=== PATIENT | male | born 1940 | race Caucasian/White ===

== ENCOUNTER 2020-06-10 20:02 | Inpatient (IN) | payer MEDICARE ==
[2020-06-10 21:12] LABS: #Monocytes 0.8 10x3/uL (0.0-1.1); #Neutrophils 3.6 10x3/uL (1.5-8.4); %Basophils 0.2 % (0.0-2.0); %Eosinophils 0.5 % (0.0-6.0); %Lymphocytes 17.2 % (18.0-47.0); %Monocytes 14.6 % (0.0-10.0); Hemoglobin 11.8 g/dL (13.5-17.5); Mean Corpuscular HGB CONC 34.7 g/dL (32.0-36.0); Mean Corpuscular Hemoglobin 31.5 pg (27.0-33.0); Mean Corpuscular Volume 90.7 fl (81.2-95.1); Mean Platelet Volume 9.5 fl (7.4-10.4); Platelet Count 158 10x3/uL (150-450); RBC Distribution Width 14.9 % (11.5-14.5); Red Blood Cell (RBC) Count 3.75 10x6/uL (4.32-5.72); White Blood Cell (WBC) Count 5.7 10x3/uL (3.5-10.5)
[2020-06-10 21:28] LABS: ALT (SGPT) 24 U/L (8-55); AST (SGOT) 30 U/L (5-34); Alkaline Phosphatase 86 U/L (40-110); Anion Gap 12 mmol/L (10-20); BUN (Urea Nitrogen) 18 mg/dL (8.4-25.7); Bilirubin, Total 0.7 mg/dL (0.2-1.2); Calc. Creatinine Clearance 0 mL/min (70-130); Carbon Dioxide 27 mmol/L (23-31); Chloride 91 mmol/L (98-107); Globulin 2.2 g/dL (2.4-3.5); Glucose 91 mg/dL (83-110); Lipase 89 U/L (8-78); Potassium 3.1 mmol/L (3.5-5.1); Protein, Total 5.2 g/dL (5.8-8.1); Sodium 127 mmol/L (136-145)
[2020-06-10 21:34] LABS: Calcium 5.8 mg/dL (7.8-10.44)
[2020-06-10] MEDS ORDERED: Potassium Chloride 20 MEQ/100 ML PREMIX BAG ONE (22:38)
[2020-06-10] MEDS ORDERED: Magnesium 2 GM/50 ML BAG (IN WATER) ONE (22:38)
[2020-06-10] MEDS ORDERED: Dextrose 50% Abboject 50 ML SYRINGE SLOW IVP PRN (22:45)
[2020-06-10] MEDS ORDERED: Dextrose 5% in Water 1,000 ML IV PRN (22:45)
[2020-06-10] MEDS ORDERED: Guaifenesin DM 100-10/5 ML UDCUP PO PRN (22:45)
[2020-06-10] MEDS ORDERED: Calcium Gluc 4.6 MEQ/10 ML (100 MG/ML) SLOW IVP SCH (22:48)
[2020-06-10] MEDS ORDERED: Potassium Chloride 20 MEQ TAB PO SCH (23:00)
[2020-06-10 23:30] VITALS: BMI 43.1
[2020-06-11 00:39] LABS: Bilirubin Neg (Negative); Blood, Urine Negative (Negative); Clarity Clear (Clear); Glucose, Urine (Dipstick) Normal (Negative); Ketone, Urine Negative (Negative); Leukocyte Negative (Negative); Nitrite Negative (Negative); Protein, Urine (Dipstick) 15 mg/dl (Neg-Trace); Specific Gravity, Urine 1.015 (1.002-1.036); Urobilinogen Normal mg/dL (Less than 2)
[2020-06-11 00:53] LABS: Bacteria/HPF Rare-Few HPF (None Seen); RBC/HPF 0-3 HPF (0-3); Squamous Epithelial 0-3 HPF (0-3); WBC/HPF 0-3 HPF (0-3)
[2020-06-11] MEDS: NS 0.9% w/ 20 MEQ KCL 1,000 ML/1,000 ML BAG IV SCH ×3 (01:17→18:23)
[2020-06-11] MEDS ORDERED: Magnesium 2 GM/50 ML 2 GM in Premix Bag 1 BAG IVPB SCH (03:00)
[2020-06-11 05:22] LABS: #Monocytes 0.8 10x3/uL (0.0-1.1); #Neutrophils 3.1 10x3/uL (1.5-8.4); %Basophils 0.2 % (0.0-2.0); %Eosinophils 0.6 % (0.0-6.0); %Lymphocytes 15.6 % (18.0-47.0); %Monocytes 17.3 % (0.0-10.0); %Neutrophils 63.8 % (40.0-75.0); Hemoglobin 12.2 g/dL (13.5-17.5); Mean Corpuscular HGB CONC 35.2 g/dL (32.0-36.0); Mean Corpuscular Hemoglobin 31.3 pg (27.0-33.0); Mean Platelet Volume 9.2 fl (7.4-10.4); Platelet Count 160 10x3/uL (150-450); RBC Distribution Width 14.6 % (11.5-14.5); White Blood Cell (WBC) Count 4.8 10x3/uL (3.5-10.5)
[2020-06-11 05:40] LABS: ALT (SGPT) 25 U/L (8-55); AST (SGOT) 31 U/L (5-34); Albumin 2.9 g/dL (3.4-4.8); Alkaline Phosphatase 85 U/L (40-110); Anion Gap 14 mmol/L (10-20); BUN (Urea Nitrogen) 14 mg/dL (8.4-25.7); Bilirubin, Total 0.7 mg/dL (0.2-1.2); Calc. Creatinine Clearance 154 mL/min (70-130); Carbon Dioxide 25 mmol/L (23-31); Chloride 95 mmol/L (98-107); Globulin 2.3 g/dL (2.4-3.5); Glucose 98 mg/dL (83-110); Lipase 73 U/L (8-78); Protein, Total 5.2 g/dL (5.8-8.1); Sodium 131 mmol/L (136-145)
[2020-06-11 05:54] LABS: Calcium 5.9 mg/dL (7.8-10.44)
[2020-06-11] MEDS ORDERED: Calcium Gluc 4.6 MEQ/10 ML (100 MG/ML) SLOW IVP ONE (05:55)
[2020-06-11] MEDS ORDERED: Potassium Chloride 20 MEQ TAB PO SCH (06:00)
[2020-06-11] MEDS ORDERED: Calcium Gluconate 4.6 MEQ in Sodium Chloride 0.9% 100 ML IVPB SCH (06:30)
[2020-06-11 08:33] LABS: Magnesium 1.3 mg/dL (1.6-2.6); Phosphorus 2.8 mg/dL (2.3-4.7)
[2020-06-11] MEDS: Tamsulosin HCl 0.4 MG CAP PO SCH (08:49)
[2020-06-11] MEDS: Calcium Carbonate 500 MG ChewTAB PO SCH ×2 (08:49→20:34)
[2020-06-11] MEDS: Carvedilol 3.125 MG TAB PO SCH ×2 (08:49→18:45)
[2020-06-11] MEDS: Folic Acid 1 MG TAB PO SCH (08:50)
[2020-06-11] MEDS: Aspirin 81 mg Enteric Coated Tablet PO SCH (08:50)
[2020-06-11] MEDS: Famotidine 20 MG TAB PO SCH ×2 (08:50→20:34)
[2020-06-11] MEDS: Apixaban 5 MG TAB PO SCH ×2 (08:50→20:34)
[2020-06-11] MEDS ORDERED: Cholecalciferol 1,000 UNITS (25 MCG) TAB PO SCH (09:00)
[2020-06-11 11:25] LABS: Hemoglobin A1c 7.2 % (4.0-6.0)
[2020-06-11 12:45] LABS: Anion Gap 11 mmol/L (10-20); BUN (Urea Nitrogen) 12 mg/dL (8.4-25.7); Calc. Creatinine Clearance 191 mL/min (70-130); Carbon Dioxide 26 mmol/L (23-31); Chloride 95 mmol/L (98-107); Glucose 95 mg/dL (83-110); Potassium 3.2 mmol/L (3.5-5.1); Sodium 129 mmol/L (136-145)
[2020-06-11 12:54] LABS: Calcium 5.9 mg/dL (7.8-10.44)
[2020-06-11] MEDS: Atorvastatin Calcium 20 MG TAB PO SCH (20:34)
[2020-06-11] MEDS: Magnesium Oxide 400 MG TAB PO SCH (20:34)
[2020-06-12 05:41] LABS: #Monocytes 0.6 10x3/uL (0.0-1.1); #Neutrophils 3.2 10x3/uL (1.5-8.4); %Basophils 0.2 % (0.0-2.0); %Eosinophils 0.6 % (0.0-6.0); %Lymphocytes 18.4 % (18.0-47.0); %Monocytes 11.3 % (0.0-10.0); %Neutrophils 66.4 % (40.0-75.0); Hemoglobin 11.9 g/dL (13.5-17.5); Mean Corpuscular HGB CONC 34.7 g/dL (32.0-36.0); Mean Corpuscular Hemoglobin 31.6 pg (27.0-33.0); Mean Corpuscular Volume 91.2 fl (81.2-95.1); Mean Platelet Volume 9.5 fl (7.4-10.4); Platelet Count 177 10x3/uL (150-450); RBC Distribution Width 14.5 % (11.5-14.5); Red Blood Cell (RBC) Count 3.76 10x6/uL (4.32-5.72); White Blood Cell (WBC) Count 4.9 10x3/uL (3.5-10.5)
[2020-06-12 06:02] LABS: Anion Gap 19 mmol/L (10-20); BUN (Urea Nitrogen) 10 mg/dL (8.4-25.7); Calc. Creatinine Clearance 178 mL/min (70-130); Carbon Dioxide 22 mmol/L (23-31); Chloride 95 mmol/L (98-107); Glucose 100 mg/dL (83-110); Potassium 3.3 mmol/L (3.5-5.1); Sodium 133 mmol/L (136-145)
[2020-06-12] MEDS: NS 0.9% w/ 20 MEQ KCL 1,000 ML/1,000 ML BAG IV SCH ×2 (06:14→16:31)
[2020-06-12 06:44] LABS: Calcium 5.9 mg/dL (7.8-10.44); Magnesium 0.9 mg/dL (1.6-2.6)
[2020-06-12] MEDS ORDERED: Calcium Gluconate 4.6 MEQ in Sodium Chloride 0.9% 100 ML IVPB SCH (07:30)
[2020-06-12] MEDS ORDERED: Electrolyte Replacement Protocol 1 EACH FS SCH (08:00)
[2020-06-12] MEDS ORDERED: Potassium Chloride 20 MEQ TAB PO SCH (08:30)
[2020-06-12] MEDS: Magnesium 2 GM/50 ML 2 GM in Premix Bag 1 BAG IVPB SCH ×4 (08:42→13:02)
[2020-06-12] MEDS: Calcium Carbonate 500 MG ChewTAB PO SCH ×2 (08:45→21:10)
[2020-06-12] MEDS: Aspirin 81 mg Enteric Coated Tablet PO SCH (08:45)
[2020-06-12] MEDS: Famotidine 20 MG TAB PO SCH ×2 (08:45→21:10)
[2020-06-12] MEDS: Carvedilol 3.125 MG TAB PO SCH ×2 (08:46→18:36)
[2020-06-12] MEDS: Tamsulosin HCl 0.4 MG CAP PO SCH (08:46)
[2020-06-12] MEDS: Apixaban 5 MG TAB PO SCH ×2 (08:46→21:10)
[2020-06-12] MEDS: Folic Acid 1 MG TAB PO SCH (08:46)
[2020-06-12] MEDS: Magnesium Oxide 400 MG TAB PO SCH ×2 (08:46→21:10)
[2020-06-12] MEDS: Ergocalciferol 1.25 MG(50,000 UNITS) CAP PO SCH (08:46)
[2020-06-12] MEDS: Cefepime 1 GM in Sodium Chloride 0.9% 100 ML IVPB SCH (18:34)
[2020-06-12] MEDS: Atorvastatin Calcium 20 MG TAB PO SCH (21:10)
[2020-06-13] MEDS: NS 0.9% w/ 20 MEQ KCL 1,000 ML/1,000 ML BAG IV SCH ×3 (00:43→20:34)
[2020-06-13] MEDS: Cefepime 1 GM in Sodium Chloride 0.9% 100 ML IVPB SCH (05:27)
[2020-06-13 06:09] LABS: Anion Gap 15 mmol/L (10-20); BUN (Urea Nitrogen) 10 mg/dL (8.4-25.7); Calc. Creatinine Clearance 178 mL/min (70-130); Carbon Dioxide 25 mmol/L (23-31); Chloride 98 mmol/L (98-107); Glucose 61 mg/dL (83-110); Magnesium 1.3 mg/dL (1.6-2.6); Sodium 135 mmol/L (136-145)
[2020-06-13 06:15] LABS: Potassium 2.9 mmol/L (3.5-5.1)
[2020-06-13 06:21] LABS: Mean Corpuscular Hemoglobin 30.7 pg (27.0-33.0); Mean Corpuscular Volume 90.5 fl (81.2-95.1); Mean Platelet Volume 9.3 fl (7.4-10.4); Platelet Count 158 10x3/uL (150-450); RBC Distribution Width 14.7 % (11.5-14.5); Red Blood Cell (RBC) Count 3.58 10x6/uL (4.32-5.72); White Blood Cell (WBC) Count 3.6 10x3/uL (3.5-10.5)
[2020-06-13] MEDS ORDERED: Potassium Chloride 20 MEQ TAB PO SCH ×2 (07:00→11:00)
[2020-06-13 07:06] LABS: Band 15 % (5-11); Lymphocytes 4 % (21-51); Monocytes 11 % (0-10); Neutrophil 70 % (42-75)
[2020-06-13 07:15] LABS: Dohle Bodies SLIGHT; Platelet Clumps SLIGHT; Platelet Morphology Comment Appears Adequate
[2020-06-13 07:16] LABS: Manual Diff?? YES; Toxic Granulation SLIGHT
[2020-06-13 07:17] LABS: MDiff Complete? YES
[2020-06-13] MEDS: Carvedilol 3.125 MG TAB PO SCH ×2 (09:12→17:19)
[2020-06-13] MEDS: Potassium Chloride 20 MEQ TAB PO SCH ×2 (09:13→16:28)
[2020-06-13] MEDS: Apixaban 5 MG TAB PO SCH ×2 (09:13→20:32)
[2020-06-13] MEDS: Tamsulosin HCl 0.4 MG CAP PO SCH (09:13)
[2020-06-13] MEDS: Famotidine 20 MG TAB PO SCH ×2 (09:13→20:32)
[2020-06-13] MEDS: Aspirin 81 mg Enteric Coated Tablet PO SCH (09:13)
[2020-06-13] MEDS: Folic Acid 1 MG TAB PO SCH (09:13)
[2020-06-13] MEDS: Calcium Carbonate 500 MG ChewTAB PO SCH ×2 (09:14→20:32)
[2020-06-13] MEDS: Magnesium Oxide 400 MG TAB PO SCH ×2 (09:14→20:32)
[2020-06-13] MEDS: Magnesium 2 GM/50 ML 2 GM in Premix Bag 1 BAG IVPB SCH ×2 (09:25→10:35)
[2020-06-13] MEDS: SODIUM CHLORIDE IVPB SCH ×2 (16:28→21:10)
[2020-06-13] MEDS: ADMIXTURE FEE IVPB SCH ×2 (16:28→21:10)
[2020-06-13] MEDS: ACYCLOVIR SODIUM IVPB SCH ×2 (16:28→21:10)
[2020-06-13 18:12] LABS: Anion Gap 11 mmol/L (10-20); BUN (Urea Nitrogen) 9 mg/dL (8.4-25.7); Calc. Creatinine Clearance 171 mL/min (70-130); Carbon Dioxide 27 mmol/L (23-31); Chloride 101 mmol/L (98-107); Glucose 99 mg/dL (83-110); Magnesium 1.6 mg/dL (1.6-2.6); Phosphorus 2.2 mg/dL (2.3-4.7); Potassium 3.2 mmol/L (3.5-5.1); Sodium 136 mmol/L (136-145)
[2020-06-13] MEDS: Atorvastatin Calcium 20 MG TAB PO SCH (20:32)
[2020-06-14 05:40] LABS: #Monocytes 0.6 10x3/uL (0.0-1.1); #Neutrophils 2.4 10x3/uL (1.5-8.4); %Basophils 0.7 % (0.0-2.0); %Eosinophils 0.7 % (0.0-6.0); %Lymphocytes 20.8 % (18.0-47.0); %Monocytes 14.9 % (0.0-10.0); %Neutrophils 60.2 % (40.0-75.0); Hemoglobin 11.4 g/dL (13.5-17.5); Mean Corpuscular HGB CONC 34.4 g/dL (32.0-36.0); Mean Corpuscular Hemoglobin 31.2 pg (27.0-33.0); Mean Corpuscular Volume 90.7 fl (81.2-95.1); Mean Platelet Volume 8.8 fl (7.4-10.4); Platelet Count 147 10x3/uL (150-450); RBC Distribution Width 14.6 % (11.5-14.5); Red Blood Cell (RBC) Count 3.65 10x6/uL (4.32-5.72)
[2020-06-14 05:43] LABS: Anion Gap 13 mmol/L (10-20); BUN (Urea Nitrogen) 9 mg/dL (8.4-25.7); Calc. Creatinine Clearance 194 mL/min (70-130); Calcium 6.1 mg/dL (7.8-10.44); Carbon Dioxide 25 mmol/L (23-31); Chloride 101 mmol/L (98-107); Glucose 78 mg/dL (83-110); Magnesium 1.2 mg/dL (1.6-2.6); Sodium 136 mmol/L (136-145)
[2020-06-14 05:49] LABS: Potassium 2.7 mmol/L (3.5-5.1)
[2020-06-14] MEDS: SODIUM CHLORIDE IVPB SCH ×3 (05:50→22:40)
[2020-06-14] MEDS: NS 0.9% w/ 20 MEQ KCL 1,000 ML/1,000 ML BAG IV SCH ×2 (05:50→17:07)
[2020-06-14] MEDS: ADMIXTURE FEE IVPB SCH ×3 (05:50→22:40)
[2020-06-14] MEDS: ACYCLOVIR SODIUM IVPB SCH ×3 (05:50→22:40)
[2020-06-14] MEDS ORDERED: Potassium Chloride 20 MEQ TAB PO SCH ×3 (06:45→18:00)
[2020-06-14] MEDS ORDERED: Magnesium 2 GM/50 ML 2 GM in Premix Bag 1 BAG IVPB SCH ×3 (06:45→20:00)
[2020-06-14] MEDS: Folic Acid 1 MG TAB PO SCH (10:56)
[2020-06-14] MEDS: Famotidine 20 MG TAB PO SCH ×2 (10:56→20:51)
[2020-06-14] MEDS: Magnesium Oxide 400 MG TAB PO SCH ×2 (10:56→20:51)
[2020-06-14] MEDS: Aspirin 81 mg Enteric Coated Tablet PO SCH (10:56)
[2020-06-14] MEDS: Apixaban 5 MG TAB PO SCH ×2 (10:56→20:51)
[2020-06-14] MEDS: Carvedilol 3.125 MG TAB PO SCH ×2 (10:56→17:07)
[2020-06-14] MEDS: Tamsulosin HCl 0.4 MG CAP PO SCH (10:56)
[2020-06-14] MEDS: Calcium Carbonate 500 MG ChewTAB PO SCH ×2 (10:57→20:51)
[2020-06-14] MEDS: Potassium Chloride 20 MEQ TAB PO SCH ×2 (10:57→17:07)
[2020-06-14] MEDS ORDERED: Metamucil PACK PO SCH (16:00)
[2020-06-14 17:06] LABS: Anion Gap 11 mmol/L (10-20); BUN (Urea Nitrogen) 8 mg/dL (8.4-25.7); Calc. Creatinine Clearance 197 mL/min (70-130); Carbon Dioxide 26 mmol/L (23-31); Chloride 103 mmol/L (98-107); Glucose 181 mg/dL (83-110); Magnesium 1.2 mg/dL (1.6-2.6); Potassium 3.1 mmol/L (3.5-5.1); Sodium 137 mmol/L (136-145)
[2020-06-14 17:29] LABS: Phosphorus 1.9 mg/dL (2.3-4.7)
[2020-06-14] MEDS ORDERED: PHOS-NAK 1 PKT PACK PO SCH (20:00)
[2020-06-14] MEDS: Atorvastatin Calcium 20 MG TAB PO SCH (20:51)
[2020-06-14] MEDS: Cefepime 1 GM in Sodium Chloride 0.9% 100 ML IVPB SCH (20:51)
[2020-06-15] MEDS: ADMIXTURE FEE IVPB SCH ×3 (05:45→21:33)
[2020-06-15] MEDS: SODIUM CHLORIDE IVPB SCH ×3 (05:45→21:33)
[2020-06-15] MEDS: ACYCLOVIR SODIUM IVPB SCH ×3 (05:45→21:33)
[2020-06-15 06:02] LABS: Anion Gap 12 mmol/L (10-20); BUN (Urea Nitrogen) 5 mg/dL (8.4-25.7); Calc. Creatinine Clearance 218 mL/min (70-130); Carbon Dioxide 26 mmol/L (23-31); Chloride 103 mmol/L (98-107); Glucose 136 mg/dL (83-110); Magnesium 1.2 mg/dL (1.6-2.6); Sodium 138 mmol/L (136-145)
[2020-06-15 06:06] LABS: Potassium 2.9 mmol/L (3.5-5.1)
[2020-06-15 06:14] LABS: #Eosinphils 0.1 10x3/uL (0.0-0.5); #Monocytes 0.4 10x3/uL (0.0-1.1); #Neutrophils 1.7 10x3/uL (1.5-8.4); %Basophils 0.3 % (0.0-2.0); %Lymphocytes 22.4 % (18.0-47.0); %Monocytes 14.5 % (0.0-10.0); %Neutrophils 56.2 % (40.0-75.0); Hemoglobin 11.3 g/dL (13.5-17.5); Mean Corpuscular HGB CONC 34.9 g/dL (32.0-36.0); Mean Corpuscular Hemoglobin 31.2 pg (27.0-33.0); Mean Corpuscular Volume 89.5 fl (81.2-95.1); Mean Platelet Volume 8.8 fl (7.4-10.4); Platelet Count 147 10x3/uL (150-450); RBC Distribution Width 14.7 % (11.5-14.5); Red Blood Cell (RBC) Count 3.62 10x6/uL (4.32-5.72)
[2020-06-15] MEDS ORDERED: PHOS-NAK 1 PKT PACK PO SCH (06:30)
[2020-06-15] MEDS: Potassium Chloride 20 MEQ in Premix Bag 1 BAG IVPB SCH ×4 (07:04→14:03)
[2020-06-15] MEDS: NS 0.9% w/ 20 MEQ KCL 1,000 ML/1,000 ML BAG IV SCH (07:06)
[2020-06-15] MEDS ORDERED: Magnesium Sulfate/D5W 1 GM/100 ML BAG IVPB SCH (08:00)
[2020-06-15] MEDS ORDERED: Magnesium 2 GM/50 ML 2 GM in Premix Bag 1 BAG IVPB SCH (08:00)
[2020-06-15] MEDS ORDERED: Magnesium 2 GM/50 ML BAG (IN WATER) IVPB SCH (09:00)
[2020-06-15] MEDS ORDERED: Potassium Chloride 20 MEQ/100 ML PREMIX BAG ONE (09:14)
[2020-06-15] MEDS: Metamucil PACK PO SCH (09:18)
[2020-06-15] MEDS: Cefepime 1 GM in Sodium Chloride 0.9% 100 ML IVPB SCH ×2 (09:18→21:32)
[2020-06-15] MEDS: Aspirin 81 mg Enteric Coated Tablet PO SCH (09:19)
[2020-06-15] MEDS: Tamsulosin HCl 0.4 MG CAP PO SCH (09:19)
[2020-06-15] MEDS: Folic Acid 1 MG TAB PO SCH (09:19)
[2020-06-15] MEDS: Famotidine 20 MG TAB PO SCH ×2 (09:19→21:37)
[2020-06-15] MEDS: Calcium Carbonate 500 MG ChewTAB PO SCH ×2 (09:19→21:31)
[2020-06-15] MEDS: Carvedilol 3.125 MG TAB PO SCH ×2 (09:20→18:17)
[2020-06-15] MEDS: Apixaban 5 MG TAB PO SCH ×2 (09:20→21:31)
[2020-06-15] MEDS: Magnesium Oxide 400 MG TAB PO SCH ×2 (09:20→21:37)
[2020-06-15] MEDS: Acetaminophen 325 MG TAB PO PRN (10:11)
[2020-06-15] MEDS: HumaLOG 300 UNITS/3 ML VIAL SC PRN (18:38)
[2020-06-15] MEDS: Atorvastatin Calcium 20 MG TAB PO SCH (21:31)
[2020-06-16] MEDS: HumaLOG 300 UNITS/3 ML VIAL SC PRN ×3 (01:20→23:48)
[2020-06-16] MEDS: Loperamide HCl 2 MG CAP PO PRN (01:55)
[2020-06-16 03:15] LABS: Bilirubin Neg (Negative); Blood, Urine Negative (Negative); Clarity Clear (Clear); Glucose, Urine (Dipstick) 250 mg/dL (Negative); Ketone, Urine Negative (Negative); Leukocyte Negative (Negative); Nitrite Negative (Negative); Protein, Urine (Dipstick) 15 mg/dl (Neg-Trace); Urobilinogen Normal mg/dL (Less than 2); pH, Urine 6.5 (5.0-9.0)
[2020-06-16 05:46] LABS: #Eosinphils 0.1 10x3/uL (0.0-0.5); #Monocytes 0.6 10x3/uL (0.0-1.1); #Neutrophils 1.9 10x3/uL (1.5-8.4); %Basophils 0.6 % (0.0-2.0); %Eosinophils 1.8 % (0.0-6.0); %Lymphocytes 19.5 % (18.0-47.0); %Monocytes 19.2 % (0.0-10.0); %Neutrophils 57.1 % (40.0-75.0); Hemoglobin 11.7 g/dL (13.5-17.5); Mean Corpuscular HGB CONC 34.3 g/dL (32.0-36.0); Mean Corpuscular Hemoglobin 31.2 pg (27.0-33.0); Mean Corpuscular Volume 90.9 fl (81.2-95.1); Mean Platelet Volume 8.8 fl (7.4-10.4); Platelet Count 147 10x3/uL (150-450); RBC Distribution Width 14.6 % (11.5-14.5); Red Blood Cell (RBC) Count 3.75 10x6/uL (4.32-5.72); White Blood Cell (WBC) Count 3.3 10x3/uL (3.5-10.5)
[2020-06-16] MEDS: SODIUM CHLORIDE IVPB SCH ×3 (05:53→22:21)
[2020-06-16] MEDS: ACYCLOVIR SODIUM IVPB SCH ×3 (05:53→22:21)
[2020-06-16] MEDS: ADMIXTURE FEE IVPB SCH ×3 (05:53→22:21)
[2020-06-16 05:59] LABS: Anion Gap 13 mmol/L (10-20); BUN (Urea Nitrogen) 6 mg/dL (8.4-25.7); Calc. Creatinine Clearance 218 mL/min (70-130); Carbon Dioxide 28 mmol/L (23-31); Chloride 103 mmol/L (98-107); Glucose 116 mg/dL (83-110); Sodium 141 mmol/L (136-145)
[2020-06-16 06:02] LABS: Phosphorus 1.8 mg/dL (2.3-4.7)
[2020-06-16] MEDS: NS 0.9% w/ 20 MEQ KCL 1,000 ML/1,000 ML BAG IV SCH ×4 (07:05→20:57)
[2020-06-16] MEDS: Aspirin 81 mg Enteric Coated Tablet PO SCH (08:54)
[2020-06-16] MEDS: Calcium Carbonate 500 MG ChewTAB PO SCH ×2 (08:54→20:57)
[2020-06-16] MEDS: PHOS-NAK 1 PKT PACK PO SCH ×2 (08:54→14:27)
[2020-06-16] MEDS: Apixaban 5 MG TAB PO SCH ×2 (08:55→20:57)
[2020-06-16] MEDS: Metamucil PACK PO SCH (08:55)
[2020-06-16] MEDS: Folic Acid 1 MG TAB PO SCH (08:55)
[2020-06-16] MEDS: Carvedilol 3.125 MG TAB PO SCH ×2 (08:55→18:17)
[2020-06-16] MEDS: Magnesium Oxide 400 MG TAB PO SCH ×2 (08:55→20:59)
[2020-06-16] MEDS: Famotidine 20 MG TAB PO SCH ×2 (08:55→20:57)
[2020-06-16] MEDS: Cefepime 1 GM in Sodium Chloride 0.9% 100 ML IVPB SCH ×2 (08:55→20:58)
[2020-06-16] MEDS: Tamsulosin HCl 0.4 MG CAP PO SCH (08:55)
[2020-06-16] MEDS: Magnesium 2 GM/50 ML 2 GM in Premix Bag 1 BAG IVPB SCH ×2 (10:59→12:10)
[2020-06-16] MEDS ORDERED: Potassium Chloride 20 MEQ TAB PO SCH (17:00)
[2020-06-16] MEDS: Atorvastatin Calcium 20 MG TAB PO SCH (20:57)
[2020-06-17] MEDS: SODIUM CHLORIDE IVPB SCH ×3 (05:32→21:53)
[2020-06-17] MEDS: ADMIXTURE FEE IVPB SCH ×3 (05:32→21:53)
[2020-06-17] MEDS: ACYCLOVIR SODIUM IVPB SCH ×3 (05:32→21:53)
[2020-06-17] MEDS: HumaLOG 300 UNITS/3 ML VIAL SC PRN ×2 (05:38→18:11)
[2020-06-17 05:54] LABS: #Eosinphils 0.1 10x3/uL (0.0-0.5); #Monocytes 0.7 10x3/uL (0.0-1.1); %Basophils 0.6 % (0.0-2.0); %Eosinophils 2.2 % (0.0-6.0); %Lymphocytes 21.3 % (18.0-47.0); %Monocytes 18.8 % (0.0-10.0); %Neutrophils 54.9 % (40.0-75.0); Hemoglobin 10.9 g/dL (13.5-17.5); Mean Corpuscular HGB CONC 33.9 g/dL (32.0-36.0); Mean Corpuscular Volume 91.5 fl (81.2-95.1); Platelet Count 144 10x3/uL (150-450); RBC Distribution Width 14.5 % (11.5-14.5); Red Blood Cell (RBC) Count 3.52 10x6/uL (4.32-5.72); White Blood Cell (WBC) Count 3.6 10x3/uL (3.5-10.5)
[2020-06-17 05:57] LABS: Phosphorus 1.9 mg/dL (2.3-4.7)
[2020-06-17 06:00] LABS: Anion Gap 13 mmol/L (10-20); BUN (Urea Nitrogen) 7 mg/dL (8.4-25.7); Calc. Creatinine Clearance 197 mL/min (70-130); Calcium 6.3 mg/dL (7.8-10.44); Carbon Dioxide 28 mmol/L (23-31); Chloride 104 mmol/L (98-107); Glucose 198 mg/dL (83-110); Magnesium 1.3 mg/dL (1.6-2.6); Potassium 3.6 mmol/L (3.5-5.1); Sodium 141 mmol/L (136-145)
[2020-06-17] MEDS: Famotidine 20 MG TAB PO SCH ×2 (09:24→20:44)
[2020-06-17] MEDS: Folic Acid 1 MG TAB PO SCH (09:24)
[2020-06-17] MEDS: Carvedilol 3.125 MG TAB PO SCH ×2 (09:24→17:11)
[2020-06-17] MEDS: Tamsulosin HCl 0.4 MG CAP PO SCH (09:25)
[2020-06-17] MEDS: Aspirin 81 mg Enteric Coated Tablet PO SCH (09:25)
[2020-06-17] MEDS: Magnesium Oxide 400 MG TAB PO SCH ×2 (09:25→20:44)
[2020-06-17] MEDS: Calcium Carbonate 500 MG ChewTAB PO SCH ×2 (09:25→20:43)
[2020-06-17] MEDS: PHOS-NAK 1 PKT PACK PO SCH ×2 (09:25→13:44)
[2020-06-17] MEDS: Apixaban 5 MG TAB PO SCH ×2 (09:25→20:45)
[2020-06-17] MEDS: Cefepime 1 GM in Sodium Chloride 0.9% 100 ML IVPB SCH ×2 (09:26→20:44)
[2020-06-17] MEDS: Metamucil PACK PO SCH (09:28)
[2020-06-17] MEDS: Magnesium 2 GM/50 ML 2 GM in Premix Bag 1 BAG IVPB SCH ×2 (11:22→13:46)
[2020-06-17] MEDS: NS 0.9% w/ 20 MEQ KCL 1,000 ML/1,000 ML BAG IV SCH ×2 (11:22)
[2020-06-17] MEDS ORDERED: Sodium Chloride 0.9% 100 ML ONE (13:35)
[2020-06-17] MEDS: Atorvastatin Calcium 20 MG TAB PO SCH (20:44)
[2020-06-18] MEDS: HumaLOG 300 UNITS/3 ML VIAL SC PRN ×3 (00:17→20:47)
[2020-06-18] MEDS: SODIUM CHLORIDE IVPB SCH ×3 (05:23→21:00)
[2020-06-18] MEDS: ACYCLOVIR SODIUM IVPB SCH ×3 (05:23→21:00)
[2020-06-18] MEDS: ADMIXTURE FEE IVPB SCH ×3 (05:23→21:00)
[2020-06-18] MEDS ORDERED: Magnesium Sulfate 2 GM in Sodium Chloride 0.9% 100 ML IVPB SCH (08:15)
[2020-06-18 08:44] LABS: Anion Gap 12 mmol/L (10-20); BUN (Urea Nitrogen) 5 mg/dL (8.4-25.7); Calc. Creatinine Clearance 191 mL/min (70-130); Calcium 6.2 mg/dL (7.8-10.44); Carbon Dioxide 31 mmol/L (23-31); Chloride 101 mmol/L (98-107); Glucose 179 mg/dL (83-110); Sodium 141 mmol/L (136-145)
[2020-06-18 08:58] LABS: Phosphorus 1.8 mg/dL (2.3-4.7)
[2020-06-18] MEDS: Magnesium 2 GM/50 ML 2 GM in Premix Bag 1 BAG IVPB SCH ×2 (09:15→14:42)
[2020-06-18] MEDS: Tamsulosin HCl 0.4 MG CAP PO SCH (09:15)
[2020-06-18] MEDS: Calcium Carbonate 500 MG ChewTAB PO SCH ×2 (09:15→20:46)
[2020-06-18] MEDS: Apixaban 5 MG TAB PO SCH ×2 (09:15→20:46)
[2020-06-18] MEDS: Carvedilol 3.125 MG TAB PO SCH ×2 (09:15→17:30)
[2020-06-18] MEDS: Folic Acid 1 MG TAB PO SCH (09:15)
[2020-06-18] MEDS: Famotidine 20 MG TAB PO SCH ×2 (09:15→20:50)
[2020-06-18] MEDS: Metamucil PACK PO SCH (09:15)
[2020-06-18] MEDS: Aspirin 81 mg Enteric Coated Tablet PO SCH (09:15)
[2020-06-18] MEDS: Magnesium Oxide 400 MG TAB PO SCH ×2 (09:15→20:50)
[2020-06-18] MEDS: Cefepime 1 GM in Sodium Chloride 0.9% 100 ML IVPB SCH ×2 (11:15→20:47)
[2020-06-18] MEDS ORDERED: Calcium Gluc 4.6 MEQ/10 ML (100 MG/ML) SLOW IVP SCH (14:00)
[2020-06-18] MEDS ORDERED: Magnesium 2 GM/50 ML 2 GM in Premix Bag 1 BAG IVPB SCH (14:45)
[2020-06-18] MEDS ORDERED: Potassium Phosphate 30 MMOL in Sodium Chloride 0.9% 250 ML 250 ML IVPB SCH (15:00)
[2020-06-18] MEDS: Potassium Chloride 10 MEQ in Premix Bag 1 BAG IVPB SCH (17:30)
[2020-06-18] MEDS ORDERED: Potassium Chloride 20 MEQ TAB PO SCH (19:30)
[2020-06-18] MEDS ORDERED: Sodium Chloride 0.9% 100 ML ONE (20:07)
[2020-06-18] MEDS: Atorvastatin Calcium 20 MG TAB PO SCH (20:46)
[2020-06-18] MEDS: PHOS-NAK 1 PKT PACK PO SCH (20:46)
[2020-06-18] MEDS: Loperamide HCl 2 MG CAP PO PRN (20:50)
[2020-06-19] MEDS: PHOS-NAK 1 PKT PACK PO SCH
[2020-06-19 03:13] LABS: Renin Activity 1.048 ng/mL/hr (0.167-5.380)
[2020-06-19] MEDS ORDERED: Sodium Chloride 0.9% 100 ML ONE ×2 (05:29→20:06)
[2020-06-19] MEDS: ADMIXTURE FEE IVPB SCH ×3 (05:34→21:29)
[2020-06-19] MEDS: SODIUM CHLORIDE IVPB SCH ×3 (05:34→21:29)
[2020-06-19] MEDS: ACYCLOVIR SODIUM IVPB SCH ×3 (05:34→21:29)
[2020-06-19] MEDS: HumaLOG 300 UNITS/3 ML VIAL SC PRN ×4 (06:30→22:00)
[2020-06-19] MEDS: Potassium Chloride 10 MEQ in Premix Bag 1 BAG IVPB SCH ×2 (07:02→07:03)
[2020-06-19 07:19] LABS: Magnesium 1.3 mg/dL (1.6-2.6); Potassium 4.2 mmol/L (3.5-5.1)
[2020-06-19 08:19] LABS: Phosphorus 2.8 mg/dL (2.3-4.7)
[2020-06-19] MEDS: Ergocalciferol 1.25 MG(50,000 UNITS) CAP PO SCH (09:46)
[2020-06-19] MEDS: Calcium Carbonate 500 MG ChewTAB PO SCH ×2 (09:46→21:28)
[2020-06-19] MEDS: Metamucil PACK PO SCH (09:46)
[2020-06-19] MEDS: Tamsulosin HCl 0.4 MG CAP PO SCH (09:47)
[2020-06-19] MEDS: Cefepime 1 GM in Sodium Chloride 0.9% 100 ML IVPB SCH ×2 (09:47→21:28)
[2020-06-19] MEDS: Folic Acid 1 MG TAB PO SCH (09:48)
[2020-06-19] MEDS: Potassium Chloride 20 MEQ TAB PO SCH (09:48)
[2020-06-19] MEDS: Famotidine 20 MG TAB PO SCH ×2 (09:48→21:28)
[2020-06-19] MEDS: Magnesium Oxide 400 MG TAB PO SCH ×2 (09:48→21:28)
[2020-06-19] MEDS: Aspirin 81 mg Enteric Coated Tablet PO SCH (09:48)
[2020-06-19] MEDS: Apixaban 5 MG TAB PO SCH ×2 (09:48→21:28)
[2020-06-19] MEDS: Carvedilol 3.125 MG TAB PO SCH ×2 (09:48→17:50)
[2020-06-19] MEDS: Magnesium 2 GM/50 ML 2 GM in Premix Bag 1 BAG IVPB SCH ×2 (12:50→15:28)
[2020-06-19] MEDS ORDERED: Calcium Gluc 4.6 MEQ/10 ML (100 MG/ML) SLOW IVP ONE (14:56)
[2020-06-19] MEDS: Atorvastatin Calcium 20 MG TAB PO SCH (21:28)
[2020-06-20 04:46] LABS: #Eosinphils 0.1 10x3/uL (0.0-0.5); #Monocytes 0.6 10x3/uL (0.0-1.1); #Neutrophils 1.4 10x3/uL (1.5-8.4); %Eosinophils 4.3 % (0.0-6.0); %Lymphocytes 23.4 % (18.0-47.0); %Monocytes 21.1 % (0.0-10.0); %Neutrophils 45.9 % (40.0-75.0); Hemoglobin 11.4 g/dL (13.5-17.5); Mean Corpuscular HGB CONC 34.5 g/dL (32.0-36.0); Mean Corpuscular Hemoglobin 31.5 pg (27.0-33.0); Mean Corpuscular Volume 91.2 fl (81.2-95.1); Mean Platelet Volume 9.2 fl (7.4-10.4); Platelet Count 174 10x3/uL (150-450); RBC Distribution Width 13.7 % (11.5-14.5); Red Blood Cell (RBC) Count 3.62 10x6/uL (4.32-5.72)
[2020-06-20 04:54] LABS: ALT (SGPT) 21 U/L (8-55); AST (SGOT) 23 U/L (5-34); Albumin 2.8 g/dL (3.4-4.8); Alkaline Phosphatase 72 U/L (40-110); Anion Gap 13 mmol/L (10-20); BUN (Urea Nitrogen) 6 mg/dL (8.4-25.7); Bilirubin, Total 0.8 mg/dL (0.2-1.2); Calc. Creatinine Clearance 185 mL/min (70-130); Calcium 6.9 mg/dL (7.8-10.44); Carbon Dioxide 31 mmol/L (23-31); Chloride 102 mmol/L (98-107); Globulin 2.4 g/dL (2.4-3.5); Glucose 179 mg/dL (83-110); Magnesium 1.4 mg/dL (1.6-2.6); Potassium 3.6 mmol/L (3.5-5.1); Protein, Total 5.2 g/dL (5.8-8.1); Sodium 142 mmol/L (136-145)
[2020-06-20 04:58] LABS: Phosphorus 1.9 mg/dL (2.3-4.7)
[2020-06-20] MEDS: HumaLOG 300 UNITS/3 ML VIAL SC PRN ×3 (05:51→21:17)
[2020-06-20] MEDS: SODIUM CHLORIDE IVPB SCH ×2 (06:04→13:30)
[2020-06-20] MEDS: ACYCLOVIR SODIUM IVPB SCH ×2 (06:04→13:30)
[2020-06-20] MEDS: ADMIXTURE FEE IVPB SCH ×2 (06:04→13:30)
[2020-06-20] MEDS: Carvedilol 3.125 MG TAB PO SCH ×2 (08:41→17:26)
[2020-06-20] MEDS: Potassium Chloride 20 MEQ TAB PO SCH (08:42)
[2020-06-20] MEDS: Apixaban 5 MG TAB PO SCH ×2 (08:42→20:18)
[2020-06-20] MEDS: Folic Acid 1 MG TAB PO SCH (08:43)
[2020-06-20] MEDS: Calcium Carbonate 500 MG ChewTAB PO SCH ×2 (08:43→20:18)
[2020-06-20] MEDS: Famotidine 20 MG TAB PO SCH ×2 (08:43→20:18)
[2020-06-20] MEDS: Aspirin 81 mg Enteric Coated Tablet PO SCH (08:43)
[2020-06-20] MEDS: Magnesium Oxide 400 MG TAB PO SCH ×2 (08:44→20:18)
[2020-06-20] MEDS: Metamucil PACK PO SCH (08:44)
[2020-06-20] MEDS: Tamsulosin HCl 0.4 MG CAP PO SCH (08:45)
[2020-06-20] MEDS ORDERED: Magnesium Sulfate 4 GM in Sodium Chloride 0.9% 250 ML 250 ML IVPB SCH (16:15)
[2020-06-20] MEDS: Magnesium 2 GM/50 ML 2 GM in Premix Bag 1 BAG IVPB SCH ×2 (17:24→20:20)
[2020-06-20] MEDS: Atorvastatin Calcium 20 MG TAB PO SCH (20:18)
[2020-06-20] MEDS: Acetaminophen 325 MG TAB PO PRN (20:19)
[2020-06-21] MEDS: Carvedilol 3.125 MG TAB PO SCH ×2 (09:11→18:07)
[2020-06-21] MEDS: Calcium Carbonate 500 MG ChewTAB PO SCH ×2 (09:11→21:05)
[2020-06-21] MEDS: Metamucil PACK PO SCH (09:11)
[2020-06-21] MEDS: Apixaban 5 MG TAB PO SCH ×2 (09:11→21:06)
[2020-06-21] MEDS: Potassium Chloride 20 MEQ TAB PO SCH (09:11)
[2020-06-21] MEDS: Lactinex Tablet PO SCH ×2 (09:11→21:06)
[2020-06-21] MEDS: Folic Acid 1 MG TAB PO SCH (09:12)
[2020-06-21] MEDS: Magnesium Oxide 400 MG TAB PO SCH ×2 (09:12→21:05)
[2020-06-21] MEDS: Famotidine 20 MG TAB PO SCH ×2 (09:12→21:06)
[2020-06-21] MEDS: Tamsulosin HCl 0.4 MG CAP PO SCH (09:12)
[2020-06-21] MEDS: Aspirin 81 mg Enteric Coated Tablet PO SCH (09:12)
[2020-06-21] MEDS: Cholestyramine/Aspartame 4 gm Packet PO SCH ×2 (12:00→21:07)
[2020-06-21] MEDS: HumaLOG 300 UNITS/3 ML VIAL SC PRN ×2 (18:08→22:00)
[2020-06-21] MEDS: Atorvastatin Calcium 20 MG TAB PO SCH (21:06)
[2020-06-21] MEDS: Loperamide HCl 2 MG CAP PO SCH (21:06)
[2020-06-22] MEDS: Acetaminophen 325 MG TAB PO PRN (06:22)
[2020-06-22] MEDS: Carvedilol 3.125 MG TAB PO SCH ×2 (06:24→18:10)
[2020-06-22] MEDS: HumaLOG 300 UNITS/3 ML VIAL SC PRN ×3 (07:09→20:20)
[2020-06-22] MEDS: Tamsulosin HCl 0.4 MG CAP PO SCH (09:00)
[2020-06-22] MEDS: Magnesium Oxide 400 MG TAB PO SCH ×2 (09:00→20:19)
[2020-06-22] MEDS: Calcium Carbonate 500 MG ChewTAB PO SCH ×2 (09:00→20:17)
[2020-06-22] MEDS: Metamucil PACK PO SCH (09:00)
[2020-06-22] MEDS: Aspirin 81 mg Enteric Coated Tablet PO SCH (09:00)
[2020-06-22] MEDS: Potassium Chloride 20 MEQ TAB PO SCH (09:00)
[2020-06-22] MEDS: Apixaban 5 MG TAB PO SCH ×2 (09:01→20:18)
[2020-06-22] MEDS: Loperamide HCl 2 MG CAP PO SCH ×3 (09:01→20:17)
[2020-06-22] MEDS: Folic Acid 1 MG TAB PO SCH (09:01)
[2020-06-22] MEDS: Lactinex Tablet PO SCH ×2 (09:01→20:18)
[2020-06-22] MEDS: Famotidine 20 MG TAB PO SCH ×2 (09:01→20:18)
[2020-06-22] MEDS: Cholestyramine/Aspartame 4 gm Packet PO SCH ×2 (10:36→21:46)
[2020-06-22] MEDS: Atorvastatin Calcium 20 MG TAB PO SCH (20:18)
[2020-06-23] MEDS: HumaLOG 300 UNITS/3 ML VIAL SC PRN (06:23)
[2020-06-23] MEDS: Carvedilol 3.125 MG TAB PO SCH (10:55)
[2020-06-23] MEDS: Apixaban 5 MG TAB PO SCH (10:56)
[2020-06-23] MEDS: Aspirin 81 mg Enteric Coated Tablet PO SCH (10:56)
[2020-06-23] MEDS: Potassium Chloride 20 MEQ TAB PO SCH (10:56)
[2020-06-23] MEDS: Famotidine 20 MG TAB PO SCH (10:56)
[2020-06-23] MEDS: Lactinex Tablet PO SCH (10:56)
[2020-06-23] MEDS: Folic Acid 1 MG TAB PO SCH (10:56)
[2020-06-23] MEDS: Calcium Carbonate 500 MG ChewTAB PO SCH (10:56)
[2020-06-23] MEDS: Metamucil PACK PO SCH (10:57)
[2020-06-23] MEDS: Loperamide HCl 2 MG CAP PO SCH ×2 (10:57→15:43)
[2020-06-23] MEDS: Tamsulosin HCl 0.4 MG CAP PO SCH (10:57)
[2020-06-23] MEDS: Magnesium Oxide 400 MG TAB PO SCH (10:57)
[2020-06-23 13:22] VITALS: BP 150/70; TEMP 97.5
[2020-06-23] MEDS: Cholestyramine/Aspartame 4 gm Packet PO SCH (14:30)
== END 2020-06-23 16:13 | DRG 372 ==
LOC: CSHERS 20:02 → CSHTELE 23:23
PROVIDERS: ADMIT Student in an Organized Health Care Education/Training Program; ATTEND Hospitalist
DX: A04.8 Other specified bacterial intestinal infections (principal); N17.9 Acute kidney failure, unspecified; E87.1 Hypo-osmolality and hyponatremia; C82.90 Follicular lymphoma, unspecified, unspecified site; Z68.41 Body mass index [BMI] 40.0-44.9, adult; J91.0 Malignant pleural effusion; E87.2 Acidosis; E83.51 Hypocalcemia; E87.6 Hypokalemia; E83.42 Hypomagnesemia; E78.5 Hyperlipidemia, unspecified; G47.33 Obstructive sleep apnea (adult) (pediatric); N40.0 Benign prostatic hyperplasia without lower urinary tract symptoms; I48.0 Paroxysmal atrial fibrillation; E66.01 Morbid (severe) obesity due to excess calories; Z88.1 Allergy status to other antibiotic agents; Z88.8 Allergy status to other drugs, medicaments and biological substances; Z79.01 Long term (current) use of anticoagulants; Z82.3 Family history of stroke; Z82.49 Family history of ischemic heart disease and other diseases of the circulatory system; Z79.82 Long term (current) use of aspirin; Z79.4 Long term (current) use of insulin; Z79.899 Other long term (current) drug therapy; I10 Essential (primary) hypertension; Z86.73 Personal history of transient ischemic attack (TIA), and cerebral infarction without residual deficits; E53.8 Deficiency of other specified B group vitamins; R53.81 Other malaise; B02.9 Zoster without complications; Z99.81 Dependence on supplemental oxygen; F10.20 Alcohol dependence, uncomplicated
CPT/HCPCS: 36415; 36416; 71045; 74176; 80048; 80053; 81001; 81003; 82088; 82306; 82310; 83036; 83605; 83630; 83690; 83735; 83970; 84100; 84132; 84244; 84311; 84443; 84484; 85025; 87040; 87045; 87046; 87077; 87324; 87427; 87449; 93005; 94660; 94760; 96374; 96375; J0133; J0692; J1815; J2001; J3475; J3480; J3490; J7050

== ENCOUNTER 2020-06-30 10:40 | Emergency (ER) | payer MEDICARE ==
[2020-06-30 12:42] LABS: #Basophils 0.1 10x3/uL (0.0-0.2); #Eosinphils 0.2 10x3/uL (0.0-0.5); #Monocytes 1.8 10x3/uL (0.0-1.1); #Neutrophils 2.4 10x3/uL (1.5-8.4); %Basophils 1.2 % (0.0-2.0); %Eosinophils 2.6 % (0.0-6.0); %Monocytes 31.4 % (0.0-10.0); %Neutrophils 42.4 % (40.0-75.0); Hemoglobin 12.4 g/dL (13.5-17.5); Mean Corpuscular HGB CONC 33.7 g/dL (32.0-36.0); Mean Corpuscular Hemoglobin 31.4 pg (27.0-33.0); Mean Corpuscular Volume 93.2 fl (81.2-95.1); Platelet Count 287 10x3/uL (150-450); RBC Distribution Width 14.6 % (11.5-14.5); Red Blood Cell (RBC) Count 3.95 10x6/uL (4.32-5.72); White Blood Cell (WBC) Count 5.7 10x3/uL (3.5-10.5)
[2020-06-30 12:44] LABS: ALT (SGPT) 11 U/L (8-55); AST (SGOT) 17 U/L (5-34); Albumin 2.8 g/dL (3.4-4.8); Alkaline Phosphatase 87 U/L (40-110); Anion Gap 12 mmol/L (10-20); BUN (Urea Nitrogen) 16 mg/dL (8.4-25.7); Bilirubin, Total 0.5 mg/dL (0.2-1.2); Calc. Creatinine Clearance 0 mL/min (70-130); Calcium 7.2 mg/dL (7.8-10.44); Carbon Dioxide 31 mmol/L (23-31); Chloride 103 mmol/L (98-107); Globulin 2.5 g/dL (2.4-3.5); Glucose 108 mg/dL (83-110); Potassium 3.5 mmol/L (3.5-5.1); Protein, Total 5.3 g/dL (5.8-8.1); Sodium 142 mmol/L (136-145)
== END 2020-06-30 14:55 | disposition home or self-care (01) ==
LOC: CSHERS 10:40
DX: R41.82 Altered mental status, unspecified (principal); E11.65 Type 2 diabetes mellitus with hyperglycemia; I10 Essential (primary) hypertension; I48.91 Unspecified atrial fibrillation; G47.30 Sleep apnea, unspecified; E78.5 Hyperlipidemia, unspecified; E11.9 Type 2 diabetes mellitus without complications; Z87.891 Personal history of nicotine dependence; Z79.82 Long term (current) use of aspirin; Z79.4 Long term (current) use of insulin; Z79.01 Long term (current) use of anticoagulants; Z79.899 Other long term (current) drug therapy
CPT/HCPCS: 36415; 36416; 70450; 71045; 80053; 84484; 85025; 93005